=== PATIENT | male | born 1955 | race Caucasian/White ===

== ENCOUNTER → 2021-03-15 | Outpatient (CLI) | payer MEDICARE ==
[~2021-03-15] MED LIST: APIX5TAB PO; CA C1TAB28 PO; CALC-141 PO; ECHI125T PO; GLUCOSAMINE 1,1 EACH PO; LISI5TAB7 PO; MAGN300C PO; METO25TA35 PO; OMEG-14 PO; OMNIPAQUE 350 MG/ML, 100ML BOTTLE ONE; POTA500G12 PO; doxycycline
== END | disposition home or self-care (01) ==
LOC: CFH 13:01
PROVIDERS: ATTEND Family Medicine
DX: C45.0 Mesothelioma of pleura (principal); R91.8 Other nonspecific abnormal finding of lung field
CPT/HCPCS: 74160; Q9967